=== PATIENT | female | born 1945 | race Caucasian/White ===

== ENCOUNTER → 2018-08-21 08:22 | Outpatient (CLI) | payer MEDICARE, OTHER, SELFPAY ==
[2018-08-21 08:38] LABS: Bacteria Urine None Seen; RBC Urine None Seen (0-5/HPF); WBC Urine None Seen (0-5/HPF)
[2018-08-21 09:25] LABS: Appearance Urine UA CLEAR; Bilirubin Urine UA NEGATIVE (NEGATIVE); Color Urine UA YELLOW; Glucose Urine UA NEGATIVE (Normal); Ketones Urine UA NEGATIVE (NEGATIVE); Leukocyte Esterase Urine UA NEGATIVE (NEGATIVE); Nitrite Urine UA Negative (Negative); Occult Blood Urine UA NEGATIVE (Negative); Protein Urine UA NEGATIVE (Negative); Urobilinogen Urine UA 0.2 E.U./dL (0.2); pH Urine UA 5.5 (4.5-8.0)
[2018-08-21 09:26] LABS: Hemoglobin A1C% w Est Avg Glu 5.4 % (4.0-6.0)
[2018-08-21 09:29] LABS: Add Manual Diff / Slide Review NO; Eosinophils Percent Auto 3.4 % (2-4); Hematocrit 42.9 % (36-46); Hemoglobin 14.5 g/dL (12.0-16.0); Lymphocytes Percent Auto 33.6 % (25-40); Mean Corpuscular HGB Conc 33.8 % (30-36); Mean Corpuscular Hemoglobin 32.4 PG (26-34); Monocytes Percent Auto 7.4 % (3-14); Neutrophils Absolute Auto 2700 /uL (3000-5900); Neutrophils Percent Auto 54.6 % (50-75); Platelet Count 279 X10^3/uL (150-400); Red Blood Cell Count 4.47 X10^6/uL (4.0-5.2); Red Cell Distribution Width 13.5 % (11.6-14.8); White Blood Cell Count 4.9 X10^3/uL (4.5-11.0)
[2018-08-21 09:33] LABS: Urine Comments Microscopic Normal
[2018-08-21 09:58] LABS: BUN Creatinine Ratio 28.6 (6-22); Blood Urea Nitrogen 20 mg/dL (7-17); Calcium 9.9 mg/dL (8.4-10.2); Carbon Dioxide 28 mmol/L (22-32); Chloride 105 mmol/L (98-107); Estimated Glomerular Filt Rate > 60.0 mL/min (>60); Glucose 117 mg/dL (80-110); HEMOLYSIS 16 (0-50); Potassium 4.8 mmol/L (3.4-5.1); Sodium 141 mmol/L (137-145)
== END ==
PROVIDERS: PCP Family Medicine; Visit Provider Orthopaedic Surgery
DX: Z01.818 Encounter for other preprocedural examination (principal); Z01.812 Encounter for preprocedural laboratory examination; R73.09 Other abnormal glucose; N39.0 Urinary tract infection, site not specified
CPT/HCPCS: 36415; 80048; 81001; 83036; 85025; 87086; 93005

== ENCOUNTER 2018-09-14 06:07 | Inpatient (IN) | payer MEDICARE, OTHER, SELFPAY ==
[2018-08-30 08:41] VITALS: BMI 27.4
[2018-09-14] VITALS (12 sets, daily range): BP systolic 94–131; BP diastolic 53–72; PULSE 65–88; RESP 15–20; TEMP 35.9–37.2; O2SAT 94–99; BMI 27.4
--- NOTE | 2018-09-14 | DI.RAD.S_ITS ---
PROCEDURE: XR HIP W PEL IF DONE LT 2V INDICATIONS: TOTAL LEFT HIP POST OPERATIVE TECHNIQUE: AP pelvis and lateral view of the left hip acquired. COMPARISON: [facility], [place], XR HIP W PEL IF DONE LT 2V, 09/14/2018, 8:28. FINDINGS: Bones: Patient is status post left hip arthroplasty, with hardware components in expected positions. The hip joint appears congruent. The visualized bony structures appear intact. There is previous right total hip arthroplasty. Soft tissues: Overlying postoperative changes are noted. No suspicious soft tissue densities. IMPRESSION: Post left total hip arthroplasty with post surgical changes and anatomic left hip alignment. Dictated by: Gage Austin M.D. on 09/14/2018 at 12:06 Approved by: Gage Austin M.D. on 09/14/2018 at 12:07
--- NOTE | 2018-09-14 06:00 | DI.RAD.S_ITS ---
PROCEDURE: XR HIP W PEL IF DONE LT 2V INDICATIONS: prosthesis placement TECHNIQUE: 2 intraoperative fluoroscopic view(s) of the hip acquired. COMPARISON: None. FINDINGS: Bones: Patient is status post left hip arthroplasty, with hardware components in expected positions. The hip joint appears congruent. The visualized bony structures appear intact. Soft tissues: Overlying postoperative changes are noted. No suspicious soft tissue densities. IMPRESSION: Fluoroscopy guidance was provided intraoperatively for left hip arthroplasty with anatomic alignment. Dictated by: Gage Austin M.D. on 09/14/2018 at 12:05 Approved by: Gage Austin M.D. on 09/14/2018 at 12:06
[2018-09-14] MEDS: VANCOMYCIN 1,000 MG/200 ML FROZ.PIGGY 200 MG IV (06:55)
[2018-09-14] MEDS: ACETAMINOPHEN 325 MG TABLET 975 MG PO ×2 (07:08→21:14)
[2018-09-14] MEDS: PREGABALIN 75 MG CAPSULE PO (07:09)
[2018-09-14] MEDS: CELECOXIB 200 MG CAPSULE PO (07:09)
[2018-09-14] MEDS: LACTATED RINGERS 1,000 ML 42 ML IV ×2 (07:30→09:17)
[2018-09-14] MEDS: CEFAZOLIN 2 GM/100 ML FROZ.PIGGY IV ×2 (07:55→19:41)
--- NOTE | 2018-09-14 08:14 | PM.PREOP ---
Pre-operative Note Interval Note Pre-op Check: Yes History & Physical Reviewed by Physician and Yes Exam Performed Changes: No
--- NOTE | 2018-09-14 08:37 | SUR.OPER ---
Supine, head on pillow, torso on pink pad positioner. Iliac crest at flex of foot end of table. Gel roll under operative hip. Both arms secured on arm boards <90 degrees abduction.
[2018-09-14] MEDS: TRANEXAMIC ACID 1,000 MG VIAL 1000 MG INJ ×2 (08:49→11:05)
[2018-09-14] MEDS: BUPIVACAINE LIPOSOME 266 MG/20 ML VIAL INJ (08:49)
[2018-09-14] MEDS: BUPIVACAINE 0.25% W/ EPI VIAL 50 ML INJ (08:50)
[2018-09-14] MEDS: LIDOCAINE 1% W/EPI INJ 20 ML INJ (08:51)
--- NOTE | 2018-09-14 11:28 | PM.OP.1 ---
Operative Date/Time/Diagnoses Date of procedure: 09/14/18 Time of procedure: 08:28 Pre-op diagnosis: left hip oa Post-op diagnosis: same Procedure & Clinicians Procedure: left total hip arthroplasty Same procedure as scheduled: Yes Indications: The patient has had progressively worsening left hip pain with radiographic changes consistent with arthritis. Non-operative management has failed and the patient has requested total hip replacement. The risks, benefits and alternatives to surgery were discussed with the patient prior to proceeding. Risks discussed included, but were not limited to, failure to relieve pain, leg length discrepancy, dislocation, stiffness, infection, nerve damage, deep venous thrombosis, pulmonary embolism, stroke, coma, heart attack, permanent paralysis and , as well as the potential need for eventual revision of the prosthetic. Surgeon: Jennifer Perdomo [employer] Driver: Zaid Connolly Anesthesia Type: General and Spinal Operative Notes Findings: Severe left hip osteoarthritis, moderate degenerative cyst anteriorly Closure Type: primary Specimen(s): none sent Implants & Drains: Perdomo [employer] Nephew R3 54, 54 x 36 poly neutral, size 6 standard offset, minus 3 x 36 head Estimated Blood Loss (mL): 300 Procedure in detail: The patient was brought to the operating room. Patient was carefully positioned in the supine position. Time-out was performed and antibiotics were given. Anesthesia was induced. She was positioned in the on the table in order to allow hyperextension of the hip. Bilateral lower extremities were prepped and draped in a standard sterile fashion. An anterior left hip incision was made 1 fingerbreadth lateral to the anterior superior iliac spine and extended distally towards the greater trochanter. Dissection was carried out through skin and subcutaneous tissues. The skin and subcutaneous tissues were carefully injected with Lidocaine with epi. Superficial hemostasis was achieved. The fascia over the tensor fascia abigail was defined and incised with a knife. Two Allis clamps were used to grasp the fascia. Tensor fascia abigail was retracted laterally. A gelpi retractor was placed. Dissection was carried out down along the neck. The circumflex vessels were carefully identified and cauterized with the Aqua Mantis. There was good visualization of the femoral neck. A Cobra was placed superior to the neck and the gluteus fibers were carefully stripped from that superior aspect of the capsule. A 2nd retractor was placed along the inferior aspect of the neck. The rectus insertion along the capsule was partially released. A 3rd retractor that was then gently placed over the rim of the acetabulum under the rectus. Capsule was carefully incised and released from the intertrochanteric line circumferentially superior to the mid sagittal line and inferiorly to the mid sagittal line until the lesser trochanter was palpable. A tag stitch was placed both in the superior and inferior limb of the capsular insertion. Along the acetabulum capsule was also released up to the mid sagittal 12:00 position. A portion of the labrum was resected. A saw was used to perform an osteotomy at the level of the intertrochanteric line and the junction of the superior femoral neck leaving approximately 1 finger breath of residual inferior neck above the lesser trochanter. A 2nd cut was made along the femoral neck at the base of the head and a napkin ring of neck was removed. Corkscrew was placed in the femoral head and the head was removed without difficulty. Retractors were then repositioned around the acetabulum. Residual labrum was resected and additional osteophytes were removed. A reamer that was 4 mm below the templated size was placed by hand in the acetabulum and it was reamed to centralize the acetabulum. It was then reamed up to 2 under the templated size and fluoroscopy was brought in to confirm the position of the reaming and depth of reaming. I reamed 1 under the anticipated size and touched the rim with line to line reaming. A trial cup was placed and noted that it was appropriately sized and fluoroscopy confirmed position and depth. The component was open and inserted without difficulty fluoroscopic imaging was used to confirm that the cup had been adequately seated and was well positioned. Neutral poly trial liner was placed. The cup was tested and noted to be stable. Attention was then directed to the femur. The femur was gently hyperextended additional capsular release was performed as needed in order to allow adequate visualization of the proximal femur with elevation of the femur. Patient was placed in a hyperextended slightly abducted position with maximum external rotation. Box osteotome was used to check for any residual neck as well as sclerotic bone along the trochanter. Vera pepper was placed in the femur. Additional broaching was performed. Canal finder was used to determine the alignment of the canal and position. Size 1 broach was placed. The canal was then appropriately broached up to the templated size as long as there was adequate stability of the broach and serial advancement of the broach without excessive impingement. Specific attention was directed at avoiding varus attempting to direct the distal aspect of the broach more anteriorly and avoiding excessive anteversion. Trial reduction showed acceptable range of motion, good stability, no posterior impingement, buddhism of leg length and appropriate lateral shuck. I also hyperflexed the hip and checked that there was no impingement anteriorly and there was good stability with flexion, abduction and internal rotation. Final neutral poly was placed without difficulty. Marcaine and Exparel were injected.. The stem was placed without difficulty. Repeat trial reduction and x-ray showed acceptable overall position, length, and no evidence of the femoral fracture. Final head was placed. Wound was meticulously irrigated with normal saline. The hip was reduced and additional Exparel and Marcaine were injected. The capsule was closed with interrupted nonabsorbable sutures. The fascia of the tensor was closed with interrupted and running Vicryl. No drain was placed. Any tensor fascia abigail muscle that appeared to be contused or injured which was a minimal amount was carefully resected. Capsule around the tensor was injected with Exparel and Marcaine. The skin was closed with barbed stitches for the subcutaneous tissue and skin. We also used surgical glue. The wound was dressed sterilely. Brief Betadine soak was also used and was meticulously irrigated with normal saline. Patient was transferred to recovery room in satisfactory condition. Complications: none Condition: stable Disposition: Acute Care Plan for aftercare: The patient will be maintained on a standard total hip replacement protocol with weight bearing as tolerated and anterior hip precautions. The patient will receive Aspirin and sequential compression devices for DVT prophylaxis. The patient will be discharged home when safe for the home environment.
[2018-09-14] MEDS: OXYCODONE IR 5 MG TABLET PO ×3 (13:56→21:13)
[2018-09-14] MEDS: LACTATED RINGERS 1,000 ML 125 ML IV ×2 (14:01→23:34)
[2018-09-14] MEDS: IBUPROFEN 600 MG TABLET PO (14:02)
--- NOTE | 2018-09-14 15:29 | PC.NURSE ---
post-op patient arrived at 1215. alert conversant. no nausea, room air, no hopkins or drain. lavinia newberry. ate lunch, drinking fluids, ivf infusing. vss.
--- NOTE | 2018-09-14 15:41 | CM.IDA ---
Discharge Planning/Care Management CM Discharge Assessment Start: 09/14/18 15:31 Freq: Status: Active Protocol: Document 09/14/18 15:31 ANTONIO (Rec: 09/14/18 15:41 ANTONIO [id number]) Discharge Planning Assessment Assigned [employer] Supervisor KILEY Suresh DPOA/Assigned Designee Name Addison Duncan, spouse Contact Information [phone], cell [phone], home Advance Directives? Yes Advance Directives on File No History Provided By Patient Prior Living Arrangements House Household Members spouse Type of transporation used prior to Drives own vehicle admit Independent with ADL's Yes Is patient alert and oriented? Yes Caregiver for Another Yes: Spouse has CA w / stoma, requires assist w/ stoma care every 3 days Comment Met w/pt and dtr, explained role. Pt had surgery this morning. She has had prior hip surgery and DC to [facility] [place]. She is hopeful to return home this time but dtr is concerned that pt's spouse will require too much, too soon. Spouse requires assistance w/stoma. This CREDIT CORRESPONDENCE CLERK will plan to check in with pt tomorrow to assess DC needs further. PT pending. Barriers to Discharge Yes Comment Caregiver for spouse. Further assess needed. Discharge Plan Home Transportation Arrangement Family Additional Comment Likely DC home but CREDIT CORRESPONDENCE CLERK will follow closely. Inpatient Status as of 09/14/18 SNF/HH Preference [facility] [place] Whiteboard Updated in Patient Room with No name and ext. # of [employer] District Supervisor Comment Marker out of ink. Review Status In Process Pre-Anesthesia Assessment Start: 08/30/18 08:41 Freq: Status: Active
--- NOTE | 2018-09-14 17:43 | PT.IIE ---
Current Diagnoses Unilateral primary osteoarthritis, left hip (09/14/18) Surgery Performed Operation Date: 09/14/18 07:45 Actual Procedures p Total Hip Arthroplasty/Anterior Approach(Left) - Jennifer Perdomo MD Surgical History (Last Updated 09/14/18 @ 13:49 by Vianca Palomino RN) History of left hip replacement (Acute) History of ankle surgery (Acute) History of total right hip arthroplasty (Acute) Hx of tubal ligation (Acute) Status post bilateral cataract extraction (Acute) Medical History (Last Reviewed 09/14/18 @ 16:45 by Dustin Menjivar, PT, DC) Arthritis (Acute) Chronic diarrhea (Acute) H/O: hysterectomy (Acute) HTN (hypertension) (Acute) Herniated intervertebral disc of lumbar spine (Acute) Impaired hearing (Acute) Melanoma (Acute) Nerve pain (Acute) Nontoxic multinodular goiter (Acute) Numbness (Acute) Osteoporosis (Acute) Pre-diabetes (Acute) Spinal stenosis (Acute) Tooth infection (Acute) Physical Therapy Inpatient Evaluation/Re-Eval M1 PT/OT-IP Prior Functional Status Start: 09/14/18 17:24 Freq: NEEDED Status: Active Protocol: Document 09/14/18 17:26 EA (Rec: 09/14/18 17:42 EA [id number]) Medical Review Prior Functional Status Medical History Reviewed Yes Diet/Fluid Consistency Regular Communication Normal Mobility and Gait Indep with ability to walk more than a block with STc and with pain prior to admission. Activities of Daily Living and IADL's Indep Prior Functional Level (Other details) Lives with her who has cancer and most of the time depedendent to patient prior to admission. Patient have regular golf once a week activity Social History Household Members spouse Living Arrangements House Number of Floors (Floors) Two Floors Number of Stairs To Enter/Railing? 15 steps total wit single rails Home Equipment Front Wheel Walker Straight Cane Raised Toilet Seat w/Armrests Employment Status Retired M2 PT-IP Current Condition Start: 09/14/18 17:24 Freq: NEEDED Status: Active Protocol: Document 09/14/18 17:26 EA (Rec: 09/14/18 17:42 EA [id number]) Physical Therapy Current Condition Current Condition Evaluation Date 09/14/18 Treatment Diagnosis S/P L SELENA anterior approach Onset Date 09/14/18 Precautions Anterior Hip Precautions No Hip Extension No Hip External Rotation Weight Bearing Status Weight Bearing Status Weight Bear as Tolerated M3 PT-IP Subjective Start: 09/14/18 17:24 Freq: NEEDED Status: Active Protocol: Document 09/14/18 17:26 EA (Rec: 09/14/18 17:42 EA [id number]) Subjective Physical Therapy Visit Type Type Initial Evaluation Visit Start Time 16:50 Visit Stop Time 17:30 Total Visit Minutes 40 Physical Therapy Visit Comments Patient Comments Patient wants to be try to mobilize. Patient states if home is the discharge place, her daughter would stay for few days, however she wants to navigate 15 steps of stairs upon discharge. Pt reports her is not fully able due to cancer. Patient Goals Patient wants be get independent in all functional transfers and mobility prior to discharge; states she will be using 15 stairs with rail and bed- BR distance of 12 ft and her is not fully able. Therapy Pain Assessment Pain When Pain Assessed At Rest Pain Present Pain Present Pain Reported Location Left Hip Intensity 5 Description Acute Throbbing Pain Behaviors Facial Grimacing Guarding Pain Management Techniques Apply Cold M4 PT-IP Mobility and Gait Start: 09/14/18 17:24 Freq: NEEDED Status: Active Protocol: Document 09/14/18 17:26 EA (Rec: 09/14/18 17:42 EA [id number]) PT-Bed Mobility Assessment Supine to Sit Supine to Sit Contact Guard Assistance Sit to Supine Sit to Supine Contact Guard Assistance Scooting Scooting to Edge of Bed Standby Assistance PT-Transfer Assessment Sit to and From Stand Sit to and from Stand Contact Guard Assistance Equipment Transfer Assistive Device Front Wheeled Walker Transfers Transfer Destination Bed Toilet Bedside Commode Transfer Technique stepping Transfer Ability Level of Assist Contact Guard Assistance Comments Mobility Comments requires cues during gait and turning due to hip pre- cautions Gait Assessment Gait Gait Assistance Required: Contact Guard Assist Distance (Feet) 20 Able to Maintain Weight Bearing Status Yes During Gait Assistive Devices Assistive Device Front Wheeled Walker Gait Deviations General Gait Pattern Antalgic Step-to Gait Factors Limiting Gait Function Factors Limiting Gait Function Decreased Strength Pain PT-Balance Assessment Sitting Balance and Reactions Static Sitting Balance Ability Normal Dynamic Sitting Balance Ability Good Standing Balance and Reactions Static Standing Balance Ability Good Dynamic Standing Balance Ability Fair M5 PT-IP Objective Assessments Start: 09/14/18 17:24 Freq: NEEDED Status: Active Protocol: Document 09/14/18 17:26 EA (Rec: 09/14/18 17:42 EA [id number]) Orientation Orientation/Cognition Level of Alertness Alert Orientation Birthday Month Date Year Language Function Ability No Deficits Noted Safety Awareness Understands Safety Issues Memory Description No Deficits Noted Gross Range of Motion Upper Extremity ROM Assessment Within Functional Limits Lower Extremity ROM Assessment Left Impaired Impairments N/A due to pre-cautions but WFL Strength Upper Extremity Strength Assessment Within Functional Limits Lower Extremity Strength Assessment Left Impaired Hip hip N/A Coordination Assessment Assessment Finger to Nose Test Normal Performance Pronation/Supination Test Normal Performance Foot Tapping Test Normal Performance Heel on Sun Test Normal Performance Sensation Assessment Sensation Gross Sensation WNL Light Touch Intact Proprioception (Position) Intact Sensation Description Tingling Comments Sensation Comments Per patient neuropathy on both feet M6 PT-IP Treatment Start: 09/14/18 17:24 Freq: NEEDED Status: Active Protocol: Document 09/14/18 17:26 EA (Rec: 09/14/18 17:42 EA [id number]) Physical Therapy Treatment Exercises Exercises Ankle Pumps Gluteal Sets Quad Sets Heel Slides Supine Hip Abduction Education Education Provided Precautions Weight Bearing Status Post-Op Packet Safety M7 PT-IP Assessment and Plan Start: 09/14/18 17:24 Freq: NEEDED Status: Active Protocol: Document 09/14/18 17:26 EA (Rec: 09/14/18 17:42 EA [id number]) PT Summary Assessment and Plan Potential Rehabilitation Potential Good Status of Condition at Evaluation Stable Summary Impairments Pain ROM Strength Balance Bed Mobility Transfers Assessment Summary Pt exhibits difficulty with mobility and transfers due to pain, weakness, and decreased activity tolerance. Patient requires assistance in all mobility at this time for safety. Patient will benefit with skilled PT to reach functional independence mobility goal prior to discharge. Goals Bed Mobility Goal Independent Transfer Goal Independent Gait Goal Independent Gait Distance 150 Days to Meet Goals 3 Frequency of Treatment Frequency Of Treatment Twice a Day Treatment Plan Physical Therapy Treatment Plan Bed Mobility Training Transfer Training Gait Training Therapeutic Exercise Balance Retraining Discharge Planning Hot or Cold Pack Neuromuscular Re-ed Manual Therapy Other Recommendations and Next Treatment stairs and distance amb; Focus review pre-cautions and HEP Recommendations To Nursing Amount of Assist Needed Independent Discharge Recommendations PT Discharge Recommendations Home with Assistance SNF Rehab Other Discharge Recommendations OP PT
--- NOTE | 2018-09-14 20:28 | PC.NURSE ---
Student nurse evening shift Removed peripheral IV from patient's left wrist. Patient stated it was in the way when ambulating, Poly RN inserted a new IV to the right forearm. Patient tolerating new site well.
[2018-09-14] MEDS: ASPIRIN EC 81 MG TABLET PO (21:14)
[2018-09-14] MEDS: DOCUSATE 100 MG CAPSULE PO (21:14)
[2018-09-14] MEDS: LOSARTAN 25 MG TABLET PO (21:51)
[2018-09-14] MEDS: diphenhydrAMINE 25 MG TABLET 50 MG PO (21:52)
[2018-09-15] VITALS: BP 124/51; PULSE 82; RESP 18; TEMP 37; O2SAT 99
[2018-09-15] MEDS: OXYCODONE IR 5 MG TABLET PO ×4 (01:03→14:11)
[2018-09-15] MEDS: CEFAZOLIN 2 GM/100 ML FROZ.PIGGY IV (02:46)
[2018-09-15 04:44] VITALS: BP 111/75; PULSE 90; RESP 18; TEMP 36.9; O2SAT 95
[2018-09-15 06:07] LABS: Hematocrit 35.1 % (36-46); Hemoglobin 11.8 g/dL (12.0-16.0)
[2018-09-15] MEDS: ASPIRIN EC 81 MG TABLET PO (07:54)
[2018-09-15] MEDS: ACETAMINOPHEN 325 MG TABLET 975 MG PO (07:54)
[2018-09-15] MEDS: IBUPROFEN 600 MG TABLET PO (07:56)
[2018-09-15 08:00] VITALS: BP 105/58; PULSE 80; RESP 18; TEMP 36.8; O2SAT 95
--- NOTE | 2018-09-15 09:35 | PM.DS.1 ---
History of Present Illness Chief complaint: total hip arthroplasty 35563 Discharge Providers Date of admission: 09/14/18 06:07 Primary care physician: Susan Jorgensen MD Consults: 08/30/18 09:40 Consult to Respiratory Therapy Evaluate & Treat Comment: Physician Instructions: Evaluate and treat 09/14/18 06:00 Consult to Anesthesiology Routine Comment: Consulting Provider: Anesthesiologist Reason for consultation: Regional block for post operative pain control 09/14/18 12:21 Consult to Discharge Planning Routine Comment: Consult to Physical Therapy Evaluate & Treat Comment: anterior Physician Instructions: post op SELENA protocol Consult to Respiratory Therapy Evaluate & Treat Comment: Physician Instructions: Evaluate and treat Discharge provider: Jennifer Perdomo MD Discharge Date: 09/15/18 Summary Discharge Diagnosis: left total hip arthroplasty. Hospital Course: Patient had a left total hip arthroplasty. She tolerated the procedure well and was able to transfer in and out of bed with no difficulty. She was seen by physical therapy. She was able to go up and down stairs. She had no nausea and was voiding without difficulty. Status at Discharge Functional status at discharge: uses cane/walker Time Spent with Patient Less than 30 minutes Exam Vital Signs (past 8 hours): - 09/15/18 04:44 09/15/18 08:00 Temperature 98.5 F 98.2 F Pulse Rate 90 80 Respiratory Rate 18 18 Blood Pressure 111/75 105/58 L Pulse Oximetry 95 95 Oxygen Delivery Method Room Air Narrative Exam Narrative: sitting comfortably in chair essentially no pain with hip ROM, calves soft bilaterally, dressing intact, nv intact distally. Objective Labs Result Diagrams: 09/15/18 05:48 Labs: Laboratory Results - last 24 hr 09/15/18 05:48 Hgb 11.8 L Hct 35.1 L Discharge Plan Discharge Plan Patient Disposition: Home Discharge comment: D/c to home after 2 sessions of PT. Discharge Med Rec/Prescriptions Prescriptions: New oxycodone 5 mg Tablet 5 mg PO Q3HR PRN (Reason: Pain, Moderate (4-6)) Qty: 0 RF: 0 Continue losartan 25 MG tablet 25 mg PO BEDTIME Qty: 0 RF: 0 aspirin 81 MG tablet,delayed release (DR/EC) 81 mg PO QDAY Qty: 0 RF: 0 diphenhydramine-acetaminophen [Tylenol PM Extra Strength] 25-500 mg Tablet 2 tab PO BEDTIME PRN (Reason: Pain, Mild) RF: 0 Follow up/Referrals: Jennifer Perdomo MD [Physician] - 3-5 Days (keep your appt.) Provider Discharge Instructions Diet: Diet as Tolerated Activity: ambulate multiple times a day Cold/Heat Therapy: ice to hip at least 3 times a day Skin/Wound/Dressing Care Report to your healthcare provider any signs of infection, such as:: chills, fever, night sweats, increased pain and unusual drainage Dressing: keep dressing on. ok to shower. Discharge Data Primary Care Provider: Susan Jorgensen Attending Provider: Jennifer Perdomo Admit Date/Time: 09/14/18 06:07 Quality VTE Deep Vein Thrombosis/Pulmonary Embolism Present on Admission: No
--- NOTE | 2018-09-15 10:10 | PT.IPTN ---
Current Diagnoses Unilateral primary osteoarthritis, left hip (09/14/18) Surgery Performed Operation Date: 09/14/18 07:45 Actual Procedures p Total Hip Arthroplasty/Anterior Approach(Left) - Jennifer Perdomo MD Physical Therapy Treatment Note M2 PT-IP Current Condition Start: 09/14/18 17:24 Freq: NEEDED Status: Active Protocol: Document 09/14/18 17:26 EA (Rec: 09/14/18 17:42 EA [id number]) Physical Therapy Current Condition Current Condition Evaluation Date 09/14/18 Treatment Diagnosis S/P L SELENA anterior approach Onset Date 09/14/18 Precautions Anterior Hip Precautions No Hip Extension No Hip External Rotation Weight Bearing Status Weight Bearing Status Weight Bear as Tolerated M3 PT-IP Subjective Start: 09/14/18 17:24 Freq: NEEDED Status: Active Protocol: Document 09/15/18 10:10 GGD (Rec: 09/15/18 12:06 GGD [id number]) Subjective Physical Therapy Visit Type Type Treatment Note Visit Start Time 10:10 Visit Stop Time 10:55 Total Visit Minutes 45 Number of ELECTRIC SHOVEL OPERATOR Visits 1 Physical Therapy Visit Comments Patient Comments Pt states that she D/C home today, but needs stairs. Therapy Pain Assessment Pain When Pain Assessed During Weight Bearing Pain Present Pain Present Pain Reported Location Left Hip Intensity 4 Scale Used Numeric (1 - 10) Pain Management Techniques Re-positioning Timing of Activity with Medications M4 PT-IP Mobility and Gait Start: 09/14/18 17:24 Freq: NEEDED Status: Active Protocol: Document 09/15/18 10:10 GGD (Rec: 09/15/18 12:06 GGD [id number]) PT-Bed Mobility Assessment Supine to Sit Supine to Sit Contact Guard Assistance Sit to Supine Sit to Supine Contact Guard Assistance Scooting Scooting to Edge of Bed Standby Assistance PT-Transfer Assessment Sit to and From Stand Sit to and from Stand Contact Guard Assistance Equipment Transfer Assistive Device Front Wheeled Walker Transfers Transfer Destination Bed Toilet Wheelchair Transfer Ability Level of Assist Contact Guard Assistance Gait Assessment Gait Gait Assistance Required: Contact Guard Assist Distance (Feet) 20 Able to Maintain Weight Bearing Status Yes During Gait Assistive Devices Assistive Device Front Wheeled Walker Gait Deviations General Gait Pattern Antalgic Step-to Gait Factors Limiting Gait Function Factors Limiting Gait Function Decreased Strength Pain Comments Gait Comments 20 feet x 4 to and from W/C Stair Climbing Assessment Evaluation Level of Assist On Stairs Contact Guard Assistance Devices Stair Climbing Assistive Devices Straight Cane Left Railing Right Railing Technique/Endurance Stair Climbing Direction Ascend and Descend Stair Climbing Technique Step to Step Number of Steps Climbed 3 Query Text: Stair Climbing Set # Repetitions (reps) 3 Comments Stair Climbing Comments Trial of stairs with both rails and rail on left to ascend and SPC. M5 PT-IP Objective Assessments Start: 09/14/18 17:24 Freq: NEEDED Status: Active Protocol: Document 09/14/18 17:26 EA (Rec: 09/14/18 17:42 EA [id number]) Orientation Orientation/Cognition Level of Alertness Alert Orientation Birthday Month Date Year Language Function Ability No Deficits Noted Safety Awareness Understands Safety Issues Memory Description No Deficits Noted Gross Range of Motion Upper Extremity ROM Assessment Within Functional Limits Lower Extremity ROM Assessment Left Impaired Impairments N/A due to pre-cautions but WFL Strength Upper Extremity Strength Assessment Within Functional Limits Lower Extremity Strength Assessment Left Impaired Hip hip N/A Coordination Assessment Assessment Finger to Nose Test Normal Performance Pronation/Supination Test Normal Performance Foot Tapping Test Normal Performance Heel on Sun Test Normal Performance Sensation Assessment Sensation Gross Sensation WNL Light Touch Intact Proprioception (Position) Intact Sensation Description Tingling Comments Sensation Comments Per patient neuropathy on both feet M6 PT-IP Treatment Start: 09/14/18 17:24 Freq: NEEDED Status: Active Protocol: Document 09/15/18 10:10 GGD (Rec: 09/15/18 12:06 GGD [id number]) Physical Therapy Treatment Exercises Exercises Ankle Pumps Gluteal Sets Quad Sets Heel Slides Education Education Provided Precautions Weight Bearing Status Safety M7 PT-IP Assessment and Plan Start: 09/14/18 17:24 Freq: NEEDED Status: Active Protocol: Document 09/15/18 10:10 GGD (Rec: 09/15/18 12:06 GGD [id number]) PT Summary Assessment and Plan Summary Assessment Summary Pt is improving with mobility. She was safe and stable with gait and stairs. She didn't need assistance with bed mobility. She need cues for hip precautions with gait. Frequency of Treatment Frequency Of Treatment Twice a Day Treatment Plan Physical Therapy Treatment Plan Bed Mobility Training Transfer Training Gait Training Therapeutic Exercise Balance Retraining Discharge Planning Hot or Cold Pack Neuromuscular Re-ed Manual Therapy Other Recommendations and Next Treatment stairs and distance amb; Focus review pre-cautions and HEP Recommendations To Nursing Amount of Assist Needed Standby Assistance Discharge Recommendations PT Discharge Recommendations Home with Assistance Other Discharge Recommendations OP PT
--- NOTE | 2018-09-15 12:46 | PC.NURSE ---
Pt is A and O x 4, VSS. Pt has pain with movement and gets good relief with 5 mg oxycodone, po. Pt is eating and drinking well, denies nausea. + BT x 4. She is voiding qs clear yellow. LS clear and S1, S2. Pt is routinely using IS, up to 3500. Pt has worked with PT, used the stairs several times with her personal cane. Pt is pleasant and cooperative.
--- NOTE | 2018-09-15 13:40 | PT.IPTN ---
Current Diagnoses Unilateral primary osteoarthritis, left hip (09/14/18) Surgery Performed Operation Date: 09/14/18 07:45 Actual Procedures p Total Hip Arthroplasty/Anterior Approach(Left) - Jennifer Perdomo MD Physical Therapy Treatment Note M2 PT-IP Current Condition Start: 09/14/18 17:24 Freq: NEEDED Status: Discharge Protocol: Document 09/14/18 17:26 EA (Rec: 09/14/18 17:42 EA [id number]) Physical Therapy Current Condition Current Condition Evaluation Date 09/14/18 Treatment Diagnosis S/P L SELENA anterior approach Onset Date 09/14/18 Precautions Anterior Hip Precautions No Hip Extension No Hip External Rotation Weight Bearing Status Weight Bearing Status Weight Bear as Tolerated M3 PT-IP Subjective Start: 09/14/18 17:24 Freq: NEEDED Status: Discharge Protocol: Document 09/15/18 13:45 GGD (Rec: 09/15/18 14:36 GGD [email or web address]) Subjective Physical Therapy Visit Type Type Treatment Note Visit Start Time 13:20 Visit Stop Time 13:45 Total Visit Minutes 25 Number of FIELD PARTY MANAGER Visits 2 Physical Therapy Visit Comments Patient Comments Pt states she ready for stairs . Therapy Pain Assessment Pain When Pain Assessed During Weight Bearing Pain Present Pain Present Pain Reported M4 PT-IP Mobility and Gait Start: 09/14/18 17:24 Freq: NEEDED Status: Discharge Protocol: Document 09/15/18 13:45 GGD (Rec: 09/15/18 14:36 GGD [email or web address]) PT-Bed Mobility Assessment Supine to Sit Supine to Sit Contact Guard Assistance Scooting Scooting to Edge of Bed Standby Assistance PT-Transfer Assessment Equipment Transfer Assistive Device Front Wheeled Walker Transfers Transfer Destination Chair Wheelchair Transfer Ability Level of Assist Contact Guard Assistance Gait Assessment Gait Gait Assistance Required: Contact Guard Assist Distance (Feet) 60 Able to Maintain Weight Bearing Status Yes During Gait Assistive Devices Assistive Device Front Wheeled Walker Gait Deviations General Gait Pattern Antalgic Step-to Gait Factors Limiting Gait Function Factors Limiting Gait Function Decreased Strength Pain Stair Climbing Assessment Evaluation Level of Assist On Stairs Contact Guard Assistance Devices Stair Climbing Assistive Devices Straight Cane Left Railing Right Railing Technique/Endurance Stair Climbing Direction Ascend and Descend Stair Climbing Technique Step to Step Number of Steps Climbed 3 Query Text: Stair Climbing Set # Repetitions (reps) 3 Comments Stair Climbing Comments Trial of stairs with both rails and rail on left to ascend and SPC x two sets. M5 PT-IP Objective Assessments Start: 09/14/18 17:24 Freq: NEEDED Status: Discharge Protocol: Document 09/14/18 17:26 EA (Rec: 09/14/18 17:42 EA [id number]) Orientation Orientation/Cognition Level of Alertness Alert Orientation Birthday Month Date Year Language Function Ability No Deficits Noted Safety Awareness Understands Safety Issues Memory Description No Deficits Noted Gross Range of Motion Upper Extremity ROM Assessment Within Functional Limits Lower Extremity ROM Assessment Left Impaired Impairments N/A due to pre-cautions but WFL Strength Upper Extremity Strength Assessment Within Functional Limits Lower Extremity Strength Assessment Left Impaired Hip hip N/A Coordination Assessment Assessment Finger to Nose Test Normal Performance Pronation/Supination Test Normal Performance Foot Tapping Test Normal Performance Heel on Sun Test Normal Performance Sensation Assessment Sensation Gross Sensation WNL Light Touch Intact Proprioception (Position) Intact Sensation Description Tingling Comments Sensation Comments Per patient neuropathy on both feet M6 PT-IP Treatment Start: 09/14/18 17:24 Freq: NEEDED Status: Discharge Protocol: Document 09/15/18 13:45 GGD (Rec: 09/15/18 14:36 GGD [email or web address]) Physical Therapy Treatment Exercises Exercises Ankle Pumps Gluteal Sets Quad Sets Heel Slides Education Education Provided Precautions Safety M7 PT-IP Assessment and Plan Start: 09/14/18 17:24 Freq: NEEDED Status: Discharge Protocol: Document 09/15/18 13:45 GGD (Rec: 09/15/18 14:36 GGD [email or web address]) PT Summary Assessment and Plan Summary Assessment Summary Pt improving with mobility. She able to progress gait distance. She need cues for stair mobility with one rail and SPC. Pt was safe with gait and stair mobility. Frequency of Treatment Frequency Of Treatment Twice a Day Treatment Plan Physical Therapy Treatment Plan Bed Mobility Training Transfer Training Gait Training Therapeutic Exercise Balance Retraining Discharge Planning Hot or Cold Pack Neuromuscular Re-ed Manual Therapy Other Recommendations and Next Treatment stairs and distance amb; Focus review pre-cautions and HEP Recommendations To Nursing Amount of Assist Needed Standby Assistance Discharge Recommendations PT Discharge Recommendations Home with Assistance Other Discharge Recommendations OP PT
--- NOTE | 2018-09-15 14:58 | CM.DPC ---
DC Note: Met w/pt and her dtr as pt was getting ready to DC home, RN giving DC instructions. Pt/dtr okay w/ DC home and PT has cleared pt for this plan. No further needs indicated. P: DC home w/family assist and outpt f/u. KILEY Shukla
== END 2018-09-15 14:15 | disposition home or self-care (01) | DRG 470 ==
PROVIDERS: Admitting Provider Orthopaedic Surgery; PCP Family Medicine; Visit Provider Orthopaedic Surgery
PROC: 0SRB02Z Replacement of Left Hip Joint with Metal on Polyethylene Synthetic Substitute, Open Approach (ICD-10-PCS; CPT 27130; principal; 2018-09-14 07:45)
DX: M16.12 Unilateral primary osteoarthritis, left hip (principal); Z96.641 Presence of right artificial hip joint; I10 Essential (primary) hypertension; F17.210 Nicotine dependence, cigarettes, uncomplicated; M85.452 Solitary bone cyst, left pelvis
CPT/HCPCS: 36415; 73502; 76001; 85014; 85018; 97110; 97116; 97530; C1776; C9290; J0690; J2250; J2704; J3010; J3370